=== PATIENT | male | born 1965 | race Caucasian/White ===

== ENCOUNTER 2020-06-05 09:07 | Day surgery (SDC) | payer OTHER, SELFPAY ==
[~2020-06-05] VITALS: Ht 167.6 cm; Wt 68.0 kg
[2020-06-05] MEDS ORDERED: LIDOCAINE 2% 100 MG/5 ML UJET TP ONE (10:52)
[2020-06-05] MEDS ORDERED: MIDAZOLAM 5 MG/5 ML VIAL ONE (10:52)
[2020-06-05] MEDS ORDERED: diphenhydrAMINE 50 MG/ML VIAL ONE (10:52)
[2020-06-05] MEDS ORDERED: fentaNYL citrate 0.05 MG/ML VIAL ONE (10:52)
[2020-06-05] MEDS ORDERED: MIDAZOLAM 2 MG/2 ML VIAL IVP ONE (13:05)
[2020-06-05] MEDS ORDERED: fentaNYL citrate 0.05 MG/ML VIAL IVP ONE (13:05)
== END 2020-06-05 12:05 | disposition home or self-care (01) ==
LOC: MDS 09:07 → MMU 09:35 → MDS 12:05
PROVIDERS: ATTEND Internal Medicine Gastroenterology
DX: C18.9 Malignant neoplasm of colon, unspecified (principal); Z20.828 Contact with and (suspected) exposure to other viral communicable diseases; Z79.899 Other long term (current) drug therapy
CPT/HCPCS: 45380; J2250; J3010; U0003; J1200

== ENCOUNTER 2020-07-04 09:05 | Outpatient (CLI) | payer OTHER, SELFPAY | END 2020-07-04 23:59 | disposition home or self-care (01) | LOC: MLB 09:05 → EDSTATUS 07-10 08:20 | PROVIDERS: ATTEND Internal Medicine Gastroenterology | DX: Z20.828 Contact with and (suspected) exposure to other viral communicable diseases (principal); C18.9 Malignant neoplasm of colon, unspecified | CPT/HCPCS: U0003 ==